=== PATIENT | female | born 1960 | race Caucasian/White ===

== ENCOUNTER 2016-06-26 13:32 | Emergency (ER) | payer MEDICARE ==
[2016-06-26 15:51] LABS: HEMOGLOBIN 12.6 gm/dl (12.3-15.3); RED BLOOD COUNT 4.18 M/UL (4.00-5.10)
[2016-06-26 16:06] LABS: BUN/CREATININE RATIO 11 (0-10)
== END 2016-06-26 20:58 | disposition home or self-care (01) ==
LOC: ER1 13:32
PROVIDERS: Physician Assistant
DX: N39.0 Urinary tract infection, site not specified (principal); E11.9 Type 2 diabetes mellitus without complications; I10 Essential (primary) hypertension; Z86.73 Personal history of transient ischemic attack (TIA), and cerebral infarction without residual deficits; Z79.4 Long term (current) use of insulin
CPT/HCPCS: 36415; 80053; 81001; 82962; 85025; 87077; 87086; 87186; 96365; 96375; 99284; J0696; J2270; J2405; J7050

== ENCOUNTER → 2020-08-27 | Outpatient (CLI) | payer MEDICARE, MEDICAID, OTHER ==
[~2020-08-27] MED LIST: ALDACTONE 25MG25 MG PO; ASPIRIN EC81 MG PO; ATORVASTATIN CA40 MG PO; CARVEDILOL12.5 MG PO; CARVEDILOL6.25 MG PO; COREG PO; COZAAR 50MG TAB50 MG PO; ENTRESTO 49 MG1 EACH PO; FUROSEMIDE40 MG PO; GLUCOPHAGE 500500 MG PO; HYDRALAZINE HCL50 MG PO; HYDROCODON-ACE1 EAC4 PO; LANTUS SOL100 UNIT/1 SQ; LASIX40 MG PO; LEVOFLOXACIN500 MG PO; LOSARTAN-HCTZ1 EAC2 PO; NOVOLOG FL100 UNIT/1 SC
== END ==
LOC: ECHO 13:00
DX: I42.0 Dilated cardiomyopathy (principal); I50.22 Chronic systolic (congestive) heart failure; I08.1 Rheumatic disorders of both mitral and tricuspid valves; I27.20 Pulmonary hypertension, unspecified
CPT/HCPCS: ECHO; 93306

== ENCOUNTER → 2020-10-13 | Outpatient (CLI) | payer MEDICARE, MEDICAID, OTHER ==
[2020-10-13 15:19] LABS: HEMOGLOBIN 14.6 gm/dl (12.3-15.3); RED BLOOD COUNT 4.65 M/UL (4.00-5.10); WHITE BLOOD COUNT 8.3 K/UL (4.5-11.0)
[2020-10-13 16:38] LABS: BUN/CREATININE RATIO 17 (0-10)
== END ==
LOC: LAB 14:14
PROVIDERS: Internal Medicine Cardiovascular Disease
DX: I50.22 Chronic systolic (congestive) heart failure (principal); I42.0 Dilated cardiomyopathy
CPT/HCPCS: 36415; 71046; 80048; 85025; U0003

== ENCOUNTER 2020-10-15 08:15 | Outpatient (CLI) | payer MEDICARE, OTHER ==
[~2020-10-15] VITALS: Ht 165.1 cm; Wt 66.0 kg
[~2020-10-15 08:15] MED LIST changes: -COREG PO; -ENTRESTO 49 MG1 EACH PO; -FUROSEMIDE40 MG PO; -HYDROCODON-ACE1 EAC4 PO; -LEVOFLOXACIN500 MG PO
[2020-10-15] MEDS ORDERED: ENTRESTO 49 MG1 EACH PO (09:52)
[2020-10-15] MEDS ORDERED: COREG PO (09:52)
[2020-10-15] MEDS ORDERED: FUROSEMIDE40 MG PO (09:52)
[2020-10-15] MEDS ORDERED: HYDRALAZINE HCL50 MG PO (09:53)
[2020-10-15] MEDS ORDERED: LEVOFLOXACIN500 MG PO (11:54)
[2020-10-15] MEDS ORDERED: HYDROCODON-ACE1 EAC4 PO (11:54)
== END 2020-10-16 11:18 | disposition home or self-care (01) ==
LOC: CATH 08:15 → MED SURG 4 13:15 → CATH 10-16 11:18
DX: I42.0 Dilated cardiomyopathy (principal); I50.22 Chronic systolic (congestive) heart failure; I11.0 Hypertensive heart disease with heart failure; E11.65 Type 2 diabetes mellitus with hyperglycemia; I25.10 Atherosclerotic heart disease of native coronary artery without angina pectoris; I27.20 Pulmonary hypertension, unspecified; F31.9 Bipolar disorder, unspecified; F41.9 Anxiety disorder, unspecified; M19.90 Unspecified osteoarthritis, unspecified site; K21.9 Gastro-esophageal reflux disease without esophagitis; E78.00 Pure hypercholesterolemia, unspecified; G47.33 Obstructive sleep apnea (adult) (pediatric); Z95.810 Presence of automatic (implantable) cardiac defibrillator; Z79.82 Long term (current) use of aspirin; Z79.4 Long term (current) use of insulin; Z79.899 Other long term (current) drug therapy
CPT/HCPCS: 33249; 71045; 82962; 93641; 99152; 99153; C1722; C1777; J1644; J2250; J3010; J3370; J7040; J7050; J7070

== ENCOUNTER 2021-08-29 19:14 | Observation (INO) | payer OTHER ==
[~2021-08-29] VITALS: Ht 167.6 cm; Wt 60.3 kg
[~2021-08-29 19:14] MED LIST changes: +COREG PO; +ENTRESTO 49 MG1 EACH PO; +FUROSEMIDE40 MG PO; +HYDROCODON-ACE1 EAC4 PO; +LEVOFLOXACIN500 MG PO
[2021-08-29 20:32] LABS: HEMOGLOBIN 16.4 gm/dl (12.3-15.3); RED BLOOD COUNT 5.22 M/UL (4.00-5.10); WHITE BLOOD COUNT 14.4 K/UL (4.5-11.0)
[2021-08-29 21:01] LABS: BUN/CREATININE RATIO 17 (0-10)
[2021-08-30] MEDS ORDERED: LANTUS SOL100 UNIT/1 SQ (09:42)
[2021-08-31 08:42] LABS: HEMOGLOBIN 15.7 gm/dl (12.3-15.3); RED BLOOD COUNT 5.3 M/UL (4.00-5.10); WHITE BLOOD COUNT 12.4 K/UL (4.5-11.0)
[2021-08-31] MEDS ORDERED: CARVEDILOL3.125 MG PO (09:29)
[2021-08-31] MEDS ORDERED: CEFUROXIME250 MG PO (09:32)
== END 2021-08-31 11:26 | disposition home or self-care (01) ==
LOC: ER1 19:14 → M/S 22:40 → CDU 22:40 → M/S 08-30 08:18
PROVIDERS: Physician Assistant; ADMIT Internal Medicine
DX: I16.0 Hypertensive urgency (principal); Z20.822 Contact with and (suspected) exposure to COVID-19; N39.0 Urinary tract infection, site not specified; I42.8 Other cardiomyopathies; I11.0 Hypertensive heart disease with heart failure; I50.22 Chronic systolic (congestive) heart failure; I27.20 Pulmonary hypertension, unspecified; I08.1 Rheumatic disorders of both mitral and tricuspid valves; G47.33 Obstructive sleep apnea (adult) (pediatric); E87.1 Hypo-osmolality and hyponatremia; E78.5 Hyperlipidemia, unspecified; E11.65 Type 2 diabetes mellitus with hyperglycemia; I25.10 Atherosclerotic heart disease of native coronary artery without angina pectoris; Z79.4 Long term (current) use of insulin; Z79.82 Long term (current) use of aspirin; Z79.84 Long term (current) use of oral hypoglycemic drugs; Z79.899 Other long term (current) drug therapy; Z86.73 Personal history of transient ischemic attack (TIA), and cerebral infarction without residual deficits; Z91.14 Patient's other noncompliance with medication regimen; Z95.810 Presence of automatic (implantable) cardiac defibrillator
CPT/HCPCS: 0241U; 36415; 70450; 71045; 80048; 80053; 81001; 82533; 82550; 82553; 82962; 83036; 83880; 84439; 84443; 84484; 85025; 86140; 93005; 96372; 96374; 96375; 99285; G0378; J0360; J1650